=== PATIENT | female | born 1975 | race Caucasian/White ===

== ENCOUNTER → 2016-11-03 | Outpatient (CLI) | payer BC ==
--- NOTE | 2016-11-05 09:24 | MM ---
Reason for exam: screening (asymptomatic). Last mammogram was performed 1 year and 3 months ago. History: Took hormonal contraceptives for 12 years beginning at age 21. Physical Findings: A clinical breast exam by your physician is recommended on an annual basis and results should be correlated with mammographic findings. MG Screening Mammo w CAD Bilateral CC and MLO view(s) were taken. Prior study comparison: August 13, 2015, right breast MG 3d work up w/cad RT. August 01, 2015, bilateral MG screening mammo w CAD. The breast tissue is heterogeneously dense. This may lower the sensitivity of mammography. Finding: There is suspicious, equal architectural distortion in the subareolar position of the left breast seen on CC view, 2cm from the nipple. ASSESSMENT: Incomplete: need additional imaging evaluation, BI-RAD 0 RECOMMENDATION: Special view mammogram of the left breast. If lesion persists on supplemental views, image directed ultrasound is recommended. [facility] will attempt to contact patient to return for supplemental views and ultrasound if indicated.
== END | disposition home or self-care (01) ==
LOC: RADMAMWWP 06:59
PROVIDERS: ATTEND Obstetrics & Gynecology
DX: Z12.31 Encounter for screening mammogram for malignant neoplasm of breast (principal)

== ENCOUNTER → 2016-11-10 | Outpatient (CLI) | payer BC ==
--- NOTE | 2016-11-10 08:10 | MM ---
Reason for exam: additional evaluation requested from abnormal screening. Last mammogram was performed less than 1 month ago. History: Took hormonal contraceptives for 12 years beginning at age 21. Physical Findings: Nurse did not find any significant physical abnormalities on exam. MG Work Up Mamm w CAD LT ML and spot compression CC view(s) were taken of the left breast. Prior study comparison: November 03, 2016, bilateral MG screening mammo w CAD. August 13, 2015, right breast MG 3d work up w/cad RT. The breast tissue is heterogeneously dense. This may lower the sensitivity of mammography. There is no discrete abnormality on compression. No significant new findings when compared with previous films. These results were verbally communicated with the patient and result sheet given to the patient on 11/10/16. ASSESSMENT: Benign, BI-RAD 2 RECOMMENDATION: Return to routine screening mammogram schedule for both breasts.
== END | disposition home or self-care (01) ==
LOC: RADMAMWWP 07:01
PROVIDERS: ATTEND Obstetrics & Gynecology
DX: R92.8 Other abnormal and inconclusive findings on diagnostic imaging of breast (principal)

== ENCOUNTER → 2017-11-16 | Outpatient (CLI) | payer BC ==
--- NOTE | 2017-11-17 08:11 | MM ---
Reason for exam: screening (asymptomatic). Last mammogram was performed 1 year ago. History: Took hormonal contraceptives for 12 years beginning at age 21. Physical Findings: A clinical breast exam by your physician is recommended on an annual basis and results should be correlated with mammographic findings. MG Screening Mammo w CAD Bilateral CC and MLO view(s) were taken. Prior study comparison: November 10, 2016, left breast MG work up mamm w CAD LT. November 03, 2016, bilateral MG screening mammo w CAD. The breast tissue is heterogeneously dense. This may lower the sensitivity of mammography. There is no discrete abnormality. ASSESSMENT: Negative, BI-RAD 1 RECOMMENDATION: Routine screening mammogram of both breasts in 1 year.
== END | disposition home or self-care (01) ==
LOC: RADMAMWWP 07:37
PROVIDERS: ATTEND Obstetrics & Gynecology
DX: Z12.31 Encounter for screening mammogram for malignant neoplasm of breast (principal)
CPT/HCPCS: 77067

== ENCOUNTER → 2019-03-04 | Outpatient (CLI) | payer BC ==
--- NOTE | 2019-03-08 13:51 | MM ---
Reason for exam: screening (asymptomatic). Last mammogram was performed 1 year and 4 months ago. History: Took hormonal contraceptives for 12 years beginning at age 21. Physical Findings: A clinical breast exam by your physician is recommended on an annual basis and results should be correlated with mammographic findings. MG 3D Screening Mammo W/Cad Bilateral CC and MLO view(s) were taken. Prior study comparison: November 16, 2017, bilateral MG screening mammo w CAD. November 10, 2016, left breast MG work up mamm w CAD LT. Finding: There are grouped/clustered fine calcifications in the lower outer quadrant, middle position of the right breast 6cm from the nipple. New finding since November 16, 2017. ASSESSMENT: Incomplete: need additional imaging evaluation, BI-RAD 0 RECOMMENDATION: Special view mammogram of the right breast. [facility] will attempt to contact patient to return for supplemental views.
== END | disposition home or self-care (01) ==
LOC: RADMAMWWP 07:04
PROVIDERS: ATTEND Obstetrics & Gynecology
DX: Z12.31 Encounter for screening mammogram for malignant neoplasm of breast (principal)
CPT/HCPCS: 77063; 77067

== ENCOUNTER → 2019-03-11 | Outpatient (CLI) | payer BC ==
--- NOTE | 2019-03-15 09:25 | MM ---
Reason for exam: additional evaluation requested from abnormal screening. Last mammogram was performed less than 1 month ago. History: Took hormonal contraceptives for 12 years beginning at age 21. Physical Findings: Nurse did not find any significant physical abnormalities on exam. MG 3D Work Up W/Cad RT CC with magnification, ML with magnification, and ML view(s) were taken of the right breast. Prior study comparison: March 04, 2019, bilateral MG 3d screening mammo w/cad. November 16, 2017, bilateral MG screening mammo w CAD. The breast tissue is heterogeneously dense. This may lower the sensitivity of mammography. Finding: There are intermediate concern, suspicious, fine, grouped/clustered calcifications in the right breast 6cm from the nipple. New finding since November 16, 2017. These results were verbally communicated with the patient and result sheet given to the patient on 03/11/19. ASSESSMENT: Suspicious, BI-RAD 4 RECOMMENDATION: Stereotactic core biopsy of the right breast. (right breast calcifications) Called Dr. Gresham with mammographic findings and has scheduled an appointment for the patient for 04/14/19 at 3:[address] Rico. Biopsy scheduled for 04/15/19 at 8:00. PRELIMINARY REPORT CALLED AND FAXED TO DR. RICO ON 02/2819.
== END | disposition home or self-care (01) ==
LOC: RADMAMWWP 09:04
PROVIDERS: ATTEND Obstetrics & Gynecology
DX: R92.8 Other abnormal and inconclusive findings on diagnostic imaging of breast (principal)
CPT/HCPCS: 77061; 77065

== ENCOUNTER → 2019-04-14 | Outpatient (CLI) | payer BC ==
[2019-04-14 15:40] VITALS: BP 125/76; PULSE 52; RESP 18; TEMP 98.2; BMI 22.3
--- NOTE | 2019-04-14 15:51 | P.GSHP ---
History of Present Illness H&P Date: 04/14/19 Chief Complaint: right bresat microcalcifications of concern Manjula is a 44 year old white female with a complaint of an area of them turned medially concern suspicious finding good cluster calcifications in the right breast 6 cm from the nipple. This was noted on a routine mammogram. Nothing of concern was identified in the left breast. The patient does not feel any masses or lumps in her breasts. No history of any trauma or infection in the breast. No abnormal nipple discharge or skin changes. Family History: negative for cancer Medical history: Menarche:12 , first born at 26, bresat fed: yes periods regular BCP: 5 years, not now hormones: no Past surgical history: Negative Medical history: negative Social history: Smoke: Negative Alcohol: Negative Drugs: Negative - Constitutional Constitutional: Denies chills, Denies fever - EENT Comment: narrow severino glaucoma Eyes: denies blurred vision, denies pain Ears: bilateral: decreased hearing, deny: tinnitus Ears, nose, mouth and throat: Denies headache, Denies sore throat - Breasts Breasts: bilateral: as per HPI - Cardiovascular Cardiovascular: Denies chest pain, Denies shortness of breath - Respiratory Respiratory: Denies cough, Denies 7 - Gastrointestinal Gastrointestinal: Denies abdominal pain, Denies diarrhea, Denies nausea, Denies vomiting - Genitourinary (Female) Genitourinary: Denies dysuria, Denies hematuria - Menstruation Menstruation: Reports period normal - Musculoskeletal Musculoskeletal: Denies myalgias - Integumentary Integumentary: Denies pruritus, Denies rash - Neurological Neurological: Denies numbness, Denies weakness - Psychiatric Psychiatric: Denies anxiety, Denies depression - Endocrine Endocrine: Denies fatigue, Denies weight change - Hematologic/Lymphatic Comment: none - Allergic/Immunologic Allergic/Immunologic: Reports as per HPI Past Medical History Past Medical History: Eye Disorder, Thyroid Disorder Additional Past Medical History / Comment(s): glaucoma History of Any Multi-Drug Resistant Organisms: None Reported Past Surgical History: No Surgical Hx Reported Past Anesthesia/Blood Transfusion Reactions: No Reported Reaction Past Psychological History: No Psychological Hx Reported Smoking Status: Never smoker Past Alcohol Use History: None Reported Past Drug Use History: None Reported Medications and Allergies Home Medications Medication Instructions Recorded Confirmed Type Latanoprost/Pf [Latanoprost 0.005% 1 each OPHTHALMIC DAILY 03/24/19 04/14/19 History Eye Drop] Levothyroxine Sodium [Synthroid] 50 mcg PO DAILY 03/24/19 04/14/19 History Calcium Carbonate [Calcium] 600 mg PO DAILY 04/14/19 04/14/19 History Cholecalciferol (Vitamin D3) 2,000 unit PO DAILY 04/14/19 04/14/19 History [Vitamin D3] Allergies Allergy/AdvReac Type Severity Reaction Status Date / Time No Known Allergies Allergy Verified 04/14/19 15:35 Surgical - Exam BMI 22.3 - General well developed, well nourished, no distress - Eyes normal ocular movement, no icteric - ENT no hearing loss, no congestion - Neck no masses, trachea midline - Respiratory normal expansion, normal respiratory effort, clear to auscultation - Cardiovascular Rhythm: regular Heart Sounds: normal: S1, S2 - Abdomen Abdomen: soft, non tender, no guarding, no rigid, no rebound - Integumentary normal turgor - Musculoskeletal normal gait, normal posture - Psychiatric oriented to time, oriented to person, oriented to place, speech is normal, memory intact breast exam: right breast: Multi-positional exam no dominant masses or nodules of concern, fibrocystic changes Right axilla: No adenopathy of concern Left breast: Multiple positional exam no dominant masses or nodules of concern Left axilla: No adenopathy of concern Results Mammogram results reviewed Assessment and Plan Assessment: Impression: 1. Mammographic abnormality right breast Plan: 1. Stereotactic core biopsy right breast 2. Follow-up 1 week after stereotactic core biopsy Risk and benefits of procedure discussed with the patient and she wishes to proceed CC:Dr. Chapa
== END ==
LOC: WWCWWP 15:03
PROVIDERS: ATTEND Surgery
DX: Z53.9 Procedure and treatment not carried out, unspecified reason (principal)

== ENCOUNTER → 2019-04-15 | Day surgery (SDC) | payer BC ==
[2019-04-15 07:22] VITALS: RESP 16; BMI 22.3
--- NOTE | 2019-04-15 08:35 | P.PCN ---
Date of Procedure: 04/15/19 Preoperative Diagnosis: Microcalcifications of concern right breast Postoperative Diagnosis: same Procedure(s) Performed: Stereotactic core biopsy right breast Anesthesia: local Surgeon: Eloina Rico Estimated Blood Loss (ml): 1 Pathology: other (Breast tissue) Condition: stable Disposition: same day Indications for Procedure: Intermediate concern suspicious grouped calcifications right breast Operative Findings: Microcalcifications noted in specimen Description of Procedure: The patient is a 44-year-old white female who underwent a routine mammogram was noted to have grouped/clustered calcifications in the right breast which were of intermediate concern. It was recommended she undergo a stereotactic core biopsy. The risks and benefits of the procedure were discussed with the patient. The patient was taken to the stereotactic core biopsy wound. She was positioned on the stereotactic table. A teletype clerk film was performed and identified the area of concern. The area was targeted. The breast was prepped using Betadine. 20 mL of 1% lidocaine were used to anesthetize the area of concern. 19-gauge vacuum assisted rotating core biopsy needle was driven to the correct coordinates. Prefire films were obtained which revealed the needle was in the correct location. The needle was fired. Posterior films were obtained revealing the needle to be in the correct location. 6 core biopsies were obtained. Radiograph of the specimen revealed the area of concern had been removed. There were microcalcifications in the specimen radiograph. A suture marked top at device was placed to localize the area where the biopsy had been performed. The patient tolerated the procedure in stable condition. The patient will follow with Dr. Stratton. The specimen was sent to pathology.
[2019-04-15 08:45] VITALS: BP 133/77; PULSE 64; TEMP 98.1
--- NOTE | 2019-04-15 16:26 | MM ---
EXAMINATION TYPE: MG stereo VAD BX RT DATE OF EXAM: 04/15/2019 COMPARISON: 11/16/2017, 03/11/2019 CLINICAL HISTORY: 44-year-old female referred for biopsy of right breast microcalcifications. TECHNIQUE: Stereotactic guided core biopsy of the lower outer quadrant right breast microcalcifications breast. FINDINGS: The procedure of stereotactic guided core biopsy was explained to the patient. Benefits, alternatives, and risks were discussed. An informed consent was then obtained. The shortness pathway for biopsy was chosen. Shortness pathway was an inferior approach. I performed the localization, then surgeon, Dr. Viral Hammonds performed the remainder of the procedure. A vacuum assisted biopsy gun was used to obtain multiple core samples. The patient tolerated the procedure well without any immediate complication. The patient was kept in the radiology department for short stay after the procedure and then discharged home in stable condition. Targeted calcifications are identified in specimen mammogram. Post biopsy mammogram shows the clip to appear in satisfactory position with only 8 mm of inferior migration. IMPRESSION: SUCCESSFUL, UNCOMPLICATED STEREOTACTIC GUIDED CORE BIOPSY OF LOWER-OUTER QUADRANT RIGHT BREAST MICROCALCIFICATIONS. 8 MM OF INFERIOR CLIP MIGRATION NOTED. FULL PATHOLOGY RESULTS TO FOLLOW. Pathology Results: Benign RIGHT BREAST, NEEDLE CORE BIOPSY: Fibrocystic change, foci of sclerosing adenosis with dystrophic calcification, negative for atypia. Recommendation Follow up mammogram of the right breast in 6 months. BRENDA
== END ==
LOC: RADMAMWWP 07:02
PROVIDERS: ATTEND Surgery
DX: N60.21 Fibroadenosis of right breast (principal); N60.11 Diffuse cystic mastopathy of right breast
CPT/HCPCS: 19081; 88305; A4648; J2001

== ENCOUNTER → 2019-04-28 | Outpatient (CLI) | payer BC ==
[2019-04-28 10:15] VITALS: BP 106/67; PULSE 54; RESP 16; TEMP 97.3; BMI 22.3
--- NOTE | 2019-04-28 10:20 | P.PN ---
Subjective Progress Note Date: 04/28/19 Patient is status post right breast stero biopsy on 04-15-19. Her pathology was benign, foci of sclerosing adenosis with dystrophic calcification, negative for atypia. The patient has no complaints following her procedure. Objective - Vital Signs Vital signs: Intake & Output 04/27/19 04/28/19 04/28/19 18:59 06:59 18:59 Weight 58.967 kg - Constitutional General appearance: Present: average body habitus - EENT Eyes: Present: EOMI ENT: Present: hearing grossly normal - Neck Neck: Present: normal ROM - Respiratory Respiratory: bilateral: CTA - Cardiovascular Rhythm: regular Heart sounds: normal: S1, S2 - Integumentary Integumentary Comment(s): Mild ecchymosis at the biopsy site, no evidence of any infection Assessment and Plan Assessment: Impression: 1. Patient status post stereo biopsy right breast pathology benign Plan: 1. Repeat mammogram 6 months with physician examine that time Cc:
== END | disposition home or self-care (01) ==
LOC: WWCWWP 10:04
PROVIDERS: ATTEND Surgery
DX: Z53.9 Procedure and treatment not carried out, unspecified reason (principal)

== ENCOUNTER → 2019-10-24 | Outpatient (CLI) | payer BC, OTHER ==
--- NOTE | 2019-10-24 08:34 | MM ---
Reason for exam: follow-up at short interval from prior study. Last mammogram was performed 7 months ago. History: Benign MG stereo VAD BX RT of the right breast, April 15, 2019. Took hormonal contraceptives for 12 years beginning at age 21. Physical Findings: Nurse did not find any significant physical abnormalities on exam. MG Diagnostic Mammo RT w CAD CC, MLO, and ML view(s) were taken of the right breast. Prior study comparison: March 11, 2019, right breast MG 3d work up w/cad RT. March 04, 2019, bilateral MG 3d screening mammo w/cad. The breast tissue is heterogeneously dense. This may lower the sensitivity of mammography. Right biopsy marker noted few adjacent residual calcifications. These results were verbally communicated with the patient and result sheet given to the patient on 10/24/18. ASSESSMENT: Benign, BI-RAD 2 RECOMMENDATION: Return to routine screening mammogram schedule for both breasts. Back on schedule for February 2020.
== END | disposition home or self-care (01) ==
LOC: RADMAMWWP 07:02
PROVIDERS: ATTEND Surgery
DX: R92.8 Other abnormal and inconclusive findings on diagnostic imaging of breast (principal)
CPT/HCPCS: 77065

== ENCOUNTER → 2019-10-27 | Outpatient (CLI) | payer BC, OTHER ==
--- NOTE | 2019-10-27 09:16 | P.PN ---
Subjective Progress Note Date: 10/27/19 Principal diagnosis: follow up after stero biopsy of the right breast Manjula is a 44-year-old white female status post right breast core biopsy and [id number]. Pathology revealed fibrocystic change, foci of sclerosing adenosis with dystrophic calcification, negative for atypia. The patient has no problems or complaints since the biopsy. She was recommended to undergo a repeat right breast mammogram in 6 months and this was performed on 1620. This reveals the right biopsy marker in the correct location with a few adjacent residual calcifications. No other lesions of concern were identified. This is benign BIRADS 2. She is recommended to have a routine screening for both breast in February 2020. Patient does not have any nipple discharge or skin changes for which she is concerned. She has no complaints of any breast pain. She has no abnormalities with her. If at this time. She has not taken any hormones or hormone replacement therapy. caffiene: none chocolate: none nicotine: none Family History: negative for cancer Medical history: Menarche:12 , first born at 26, bresat fed: yes periods regular BCP: 5 years, not now hormones: no Past surgical history: Negative Medical history: negative Social history: Smoke: Negative Alcohol: Negative Drugs: Negative - Constitutional Constitutional: Denies chills, Denies fever - EENT Comment: narrow severino glaucoma Eyes: denies blurred vision, denies pain Ears: bilateral: decreased hearing, deny: tinnitus Ears, nose, mouth and throat: Denies headache, Denies sore throat - Breasts Breasts: bilateral: as per HPI - Cardiovascular Cardiovascular: Denies chest pain, Denies shortness of breath - Respiratory Respiratory: Denies cough, - Gastrointestinal Gastrointestinal: Denies abdominal pain, Denies diarrhea, Denies nausea, Denies vomiting - Genitourinary (Female) Genitourinary: Denies dysuria, Denies hematuria - Menstruation Menstruation: Reports period normal - Musculoskeletal Musculoskeletal: Denies myalgias - Integumentary Integumentary: Denies pruritus, Denies rash - Neurological Neurological: Denies numbness, Denies weakness - Psychiatric Psychiatric: Denies anxiety, Denies depression - Endocrine Endocrine: Denies fatigue, Denies weight change, hypothyroid - Hematologic/Lymphatic Comment: none - Allergic/Immunologic Allergic/Immunologic: Reports as per HPI Past Medical History Past Medical History: Eye Disorder, Thyroid Disorder Additional Past Medical History / Comment(s): glaucoma History of Any Multi-Drug Resistant Organisms: None Reported Past Surgical History: No Surgical Hx Reported Past Anesthesia/Blood Transfusion Reactions: No Reported Reaction Past Psychological History: No Psychological Hx Reported Smoking Status: Never smoker Past Alcohol Use History: None Reported Past Drug Use History: None Reported Objective - Exam BMI 23.2 - Constitutional General appearance: Present: average body habitus - EENT Eyes: Present: EOMI ENT: Present: hearing grossly normal - Neck Details: no lymphadenopathy Neck: Present: normal ROM - Respiratory Respiratory: bilateral: CTA - Cardiovascular Rhythm: regular Heart sounds: normal: S1, S2 - Gastrointestinal General gastrointestinal: Present: normal bowel sounds, soft - Integumentary Integumentary: Present: normal turgor - Musculoskeletal Musculoskeletal: Present: gait normal - Psychiatric Psychiatric: Present: A&O x's 3, appropriate affect, intact judgment & insight - Additional findings Additional findings: Breast examination: Breast size 36C ptosis grade 3 Right breast: Multi-positional exam fibrocystic changes, no dominant masses or nodules of concern right axilla: No adenopathy of concern Left breast: Multiple positional exam no dominant masses or nodules of concern left axilla: No adenopathy of concern Assessment and Plan Assessment: Impression: 1. Surveillance following right breast sterotactic core biopsy, no disease of concern 2. fibrocystic breast changes 3. right breast mammogram BIRAD 2 Plan: 1. continued surveillance 2. bilateral mammogram in February 2020 3. discussed causes of breast changes which include hormonal fluctuation secondary to being perimenopausal, caffeine, nicotine, and theophylline, patient does not drink caffeine, smoke, or eat chocolate. Her periods are regular at this time. CC: Dr. Chapa encounter 20 minutes > 50% of time spent in planning and counseling Time with Patient: Less than 30
[2019-10-27 09:21] VITALS: BP 145/81; PULSE 58; RESP 16; TEMP 97.5
== END | disposition home or self-care (01) ==
LOC: WWCWWP 08:48
PROVIDERS: ATTEND Surgery
DX: Z53.9 Procedure and treatment not carried out, unspecified reason (principal)

== ENCOUNTER → 2020-06-11 | Outpatient (CLI) | payer OTHER ==
--- NOTE | 2020-06-12 09:49 | MM ---
Reason for exam: screening (asymptomatic). Last mammogram was performed 8 months ago. History: Benign MG stereo VAD BX RT of the right breast, April 15, 2019. Took hormonal contraceptives for 12 years beginning at age 21. Physical Findings: A clinical breast exam by your physician is recommended on an annual basis and results should be correlated with mammographic findings. MG Screening Mammo w CAD Bilateral CC and MLO view(s) were taken. Prior study comparison: October 24, 2019, right breast MG diagnostic mammo RT w CAD. March 11, 2019, right breast MG 3d work up w/cad RT. The breast tissue is heterogeneously dense. This may lower the sensitivity of mammography. Focal asymmetry upper outer right breast. This finding is changed when compared with previous exams. ASSESSMENT: Incomplete: need additional imaging evaluation, BI-RAD 0 RECOMMENDATION: Special view mammogram of the right breast. If lesion persists on supplemental views, image directed ultrasound is recommended. [facility] will attempt to contact patient to return for supplemental views and ultrasound if indicated.
== END | disposition home or self-care (01) ==
LOC: RADMAMWWP 08:02
PROVIDERS: ATTEND Surgery
DX: Z12.31 Encounter for screening mammogram for malignant neoplasm of breast (principal)
CPT/HCPCS: 77067

== ENCOUNTER → 2020-06-18 | Outpatient (CLI) | payer OTHER ==
--- NOTE | 2020-06-18 08:19 | MM ---
Reason for exam: additional evaluation requested from abnormal screening. Last mammogram was performed less than 1 month ago. History: Benign MG stereo VAD BX RT of the right breast, April 15, 2019. Took hormonal contraceptives for 12 years beginning at age 21. Physical Findings: Nurse did not find any significant physical abnormalities on exam. MG Work Up Mamm w CAD RT Spot compression CC and spot compression MLO view(s) were taken of the right breast. Prior study comparison: June 11, 2020, bilateral MG screening mammo w CAD. October 24, 2019, right breast MG diagnostic mammo RT w CAD. The breast tissue is heterogeneously dense. This may lower the sensitivity of mammography. There is no discrete abnormality including area of concern on compression. Disperses on compression. These results were verbally communicated with the patient and result sheet given to the patient on 06/18/20. ASSESSMENT: Probably benign, BI-RAD 3 RECOMMENDATION: Follow-up diagnostic mammogram of the right breast in 6 months.
== END | disposition home or self-care (01) ==
LOC: RADMAMWWP 07:00
PROVIDERS: ATTEND Surgery
DX: R92.8 Other abnormal and inconclusive findings on diagnostic imaging of breast (principal)
CPT/HCPCS: 77065

== ENCOUNTER → 2021-08-13 | Outpatient (CLI) | payer OTHER ==
--- NOTE | 2021-08-13 08:48 | MM ---
Reason for exam: additional evaluation requested from prior study. Last mammogram was performed 1 year and 2 months ago. History: Benign MG stereo VAD BX RT of the right breast, April 15, 2019. Took hormonal contraceptives for 12 years beginning at age 21. Physical Findings: Nurse did not find any significant physical abnormalities on exam. MG Diagnostic Mammo w CAD FISH Bilateral CC and MLO view(s) were taken. Prior study comparison: June 11, 2020, bilateral MG screening mammo w CAD. March 04, 2019, bilateral MG 3d screening mammo w/cad. November 16, 2017, bilateral MG screening mammo w CAD. November 03, 2016, bilateral MG screening mammo w CAD. The breast tissue is heterogeneously dense. This may lower the sensitivity of mammography. Previous mammotome biopsy in the right breast. There is no discrete abnormality. These results were verbally communicated with the patient and result sheet given to the patient on 08/13/21. ASSESSMENT: Benign, BI-RAD 2 RECOMMENDATION: Routine screening mammogram of the left breast in 1 year.
== END | disposition home or self-care (01) ==
LOC: RADMAMWWP 07:45
PROVIDERS: ATTEND Obstetrics & Gynecology
DX: R92.2 Inconclusive mammogram (principal)
CPT/HCPCS: 77066

== ENCOUNTER → 2022-10-21 | Outpatient (CLI) | payer BC ==
--- NOTE | 2022-10-21 09:00 | MM ---
Reason for Exam: Screening (asymptomatic). Last mammogram was performed 1 year(s) and 3 month(s) ago. Patient History: Menarche at age 13. First Full-Term at age 26. Patient has history of breast feeding. Hormonal Contraceptives, starting at age 21 for 12 years. 04/15/2019, Benign Core Biopsy on the right side. Last menstrual period: 10/21/2022 Risk Values: Parvin 5 year model risk: 1.4%. NCI Lifetime model risk: 12.3%. Prior Study Comparison: 06/11/2020 Bilateral Screening Mammogram, [facility]. 06/18/2020 Right Diagnostic Mammogram, [facility]. 08/13/2021 Bilateral Diagnostic Mammogram, [facility]. Tissue Density: The breast tissue is heterogeneously dense. This may lower the sensitivity of mammography. Findings: Analyzed By CAD. Right breast biopsy clip. There is no suspicious group of microcalcifications or new suspicious mass in either breast. Overall Assessment: Negative, BI-RAD 1 Management: Screening Mammogram of both breasts in 1 year. A clinical breast exam by your physician is recommended on an annual basis and results should be correlated with mammographic findings. [facility] will attempt to contact patient to return for supplemental views and ultrasound if indicated. Electronically signed and approved by: Hayden Toribio DO
== END | disposition home or self-care (01) ==
LOC: RADMAMWWP 07:07
PROVIDERS: ATTEND Obstetrics & Gynecology
DX: Z12.31 Encounter for screening mammogram for malignant neoplasm of breast (principal)
CPT/HCPCS: 77067

== ENCOUNTER → 2023-11-04 | Outpatient (CLI) | payer BC ==
--- NOTE | 2023-11-04 20:03 | MM ---
Reason for Exam: Screening (asymptomatic). Last screening mammogram was performed 12 month(s) ago. Patient History: Menarche at age 13. First Full-Term at age 26. Patient has history of breast feeding. Hormonal Contraceptives, starting at age 21 for 12 years. 04/15/2019, Benign Core Biopsy on the right side. Last menstrual period: 10/21/2023 Risk Values: Parvin 5 year model risk: 1.3%. NCI Lifetime model risk: 12.1%. Prior Study Comparison: 06/18/2020 Right Diagnostic Mammogram, [facility]. 08/13/2021 Bilateral Diagnostic Mammogram, [facility]. 10/21/2022 Bilateral MG screening mammo w CAD, [facility]. Tissue Density: The breast tissue is heterogeneously dense. This may lower the sensitivity of mammography. Findings: Analyzed By CAD. Microclip right breast from prior biopsy. Punctate regional calcifications on the right are unchanged. There is no suspicious group of microcalcifications or new suspicious mass in either breast. Overall Assessment: Benign, BI-RAD 2 Management: Screening Mammogram of both breasts in 1 year. . Patient should continue monthly self-breast exams. A clinical breast exam by your physician is recommended on an annual basis. This exam should not preclude additional follow-up of suspicious palpable abnormalities. Note on Parvin scores and lifetime risk: 1. A Parvin score greater than 3% is considered moderate risk. If this is the case, consider specialist referral to assess eligibility for a risk reducing agent. 2. If overall lifetime risk for the development of breast cancer is 20% or higher, the patient may qualify for future screening with alternating mammogram and breast MRI. Electronically signed and approved by: Quyen Vazquez M.D. Radiologist
== END | disposition home or self-care (01) ==
LOC: RADMAMWWP 07:02
PROVIDERS: ATTEND Obstetrics & Gynecology
DX: Z12.31 Encounter for screening mammogram for malignant neoplasm of breast (principal)
CPT/HCPCS: 77067

== ENCOUNTER → 2025-02-07 | Outpatient (CLI) | payer BC ==
--- NOTE | 2025-02-07 09:24 | MM ---
Reason for Exam: Screening (asymptomatic). Last mammogram was performed 1 year(s) and 3 month(s) ago. Patient History: Menarche at age 13. First Full-Term at age 26. Perimenopausal. Patient has history of breast feeding. Hormonal Contraceptives, starting at age 21 for 12 years. 04/15/2019, Benign Core Biopsy on the right side. Last menstrual period: 01/26/2025 Risk Values: Parvin 5 year model risk: 1.3%. NCI Lifetime model risk: 11.8%. Prior Study Comparison: 08/13/2021 Bilateral Diagnostic Mammogram, [facility]. 10/21/2022 Bilateral MG screening mammo w CAD, [facility]. 11/04/2023 Bilateral MG screening mammo w CAD, [facility]. Tissue Density: The breasts are heterogeneously dense, which may obscure small masses. Findings: Analyzed By CAD. There is no suspicious group of microcalcifications or new suspicious mass in either breast. Overall Assessment: Negative, BI-RAD 1 Management: Screening Mammogram of both breasts in 1 year. . Patient should continue monthly self-breast exams. A clinical breast exam by your physician is recommended on an annual basis. This exam should not preclude additional follow-up of suspicious palpable abnormalities. Note on Parvin scores and lifetime risk: 1. A Parvin score greater than 3% is considered moderate risk. If this is the case, consider specialist referral to assess eligibility for a risk reducing agent. 2. If overall lifetime risk for the development of breast cancer is 20% or higher, the patient may qualify for future screening with alternating mammogram and breast MRI. [facility], , 02/07/2025 9:21 AM. Electronically signed and approved by: Epifanio Bro M.D. Radiologis
== END | disposition home or self-care (01) ==
LOC: RADMAMWWP 07:08
PROVIDERS: ATTEND Obstetrics & Gynecology Obstetrics
DX: Z12.31 Encounter for screening mammogram for malignant neoplasm of breast (principal); R92.333 Mammographic heterogeneous density, bilateral breasts; Z92.0 Personal history of contraception
CPT/HCPCS: 77063; 77067